=== PATIENT | male | born 1965 | race Hispanic/Latino ===

== ENCOUNTER 2022-11-25 19:56 | Inpatient (IN) | payer MEDICAID, OTHER ==
[~2022-11-25] VITALS: Ht 154.9 cm; Wt 103.8 kg
[~2022-11-25 19:56] MED LIST: ALBU90AE2 IH; DAPA10TA PO; LISI5TAB21 PO; METO25TA6 PO; SPIR25TA PO; TERB250T89 PO; TRAM50TA4 PO
[2022-11-26] MEDS ORDERED: IPRATROPIUM/ALBUTEROL SULFATE 3 ML SOLUTION IH ONE
[2022-11-26] MEDS ORDERED: ENOXAPARIN SODIUM 120 MG/0.8ML SQ ONE
[2022-11-26] MEDS ORDERED: ASPIRIN 325MG TAB PO ONE
[2022-11-26] MEDS ORDERED: NITROGLYCERIN 1GM OINT 1 INCH/1GM TD ONE
[2022-11-26] MEDS ORDERED: GUAIFENESIN 600 MG TABLET.ER PO ONE
[2022-11-26 00:03] LABS: APPEARANCE,URINE CLEAR (CLEAR); BILIRUBIN,URINE NEGATIVE (NEGATIVE); COLOR,URINE LIGHT-YELLOW (YELLOW); GLUCOSE, URINE (UA) NEGATIVE (NEGATIVE); KETONES,URINE NEGATIVE (NEGATIVE); LEUKOCYTE ESTERASE ,URINE NEGATIVE Leu/uL (NEGATIVE); NITRATE,URINE NEGATIVE (NEGATIVE); PH,URINE 5.5 (5.0-8.0); PROTEIN,URINE NEGATIVE (NEGATIVE); UROBILINOGEN,URINE 0.2 mg/dL (0.2-1.0)
[2022-11-26 00:06] LABS: ADD UA MICROSCOPIC YES
[2022-11-26 00:07] VITALS: PULSE 80; RESP 14
[2022-11-26 00:12] LABS: ABG BASE EXCESS -2.1 mmol/L (-2.0-3.0); ABG HCO3 21.5 mmol/L (21.0-28.0); ABG OXYGEN SATURATION 92.7 % (95.0-99.0); ABG PCO2 34 mmHg (35-48); ABG PH 7.422 (7.35-7.450); DEVICE COMMENT ROOM AIR; PO2, ARTERIAL BG 62.6 mmHg (83.0-108.0); VENT MODE, BG ROOM AIR (ROOM AIR)
[2022-11-26 00:21] LABS: MUCUS,URINE RARE LPF (None Seen)
[2022-11-26 00:36] LABS: CREATININE 1.3 mg/dL (0.5-1.5); POTASSIUM 4.1 mmol/L (3.5-5.1)
[2022-11-26 00:41] LABS: BASOPHILS # (AUTO) 0.03 K/uL (0.00-0.20); BASOPHILS % (AUTO) 0.3 % (0.0-5.0); EOSINOPHILS # (AUTO) 0.15 K/uL (0.00-0.70); EOSINOPHILS % (AUTO) 1.7 % (0.0-8.0); HEMATOCRIT 41.8 % (42-54); IMMATURE GRANULOCYTE ABSOLUTE 0.03 K/uL (0-1); LYMPHOCYTES % (AUTO) 11.4 % (21.0-51.0); MEAN CORPUSCULAR HEMOGLOBIN 32.3 pg (27.0-33.0); MEAN CORPUSCULAR HGB CONC 34.2 g/dL (32.0-36.0); MEAN CORPUSCULAR VOLUME 94.4 fL (79-99); MONOCYTES # (AUTO) 0.7 K/uL (0.1-1.0); MONOCYTES % (AUTO) 7.6 % (3.0-13.0); NEUTROPHILS # (AUTO) 6.9 K/uL (1.8-7.7); NEUTROPHILS % (AUTO) 78.7 % (40.0-77.0); PLATELET COUNT (AUTO) 232 K/uL (130-400); RED BLOOD CELL COUNT(AUTO) 4.43 MIL/uL (4.50-6.20); RED CELL DISTRIBUTION WIDTH 14.1 % (11.0-15.5); WHITE BLOOD COUNT (AUTO) 8.8 K/uL (4.8-10.8)
[2022-11-26 00:46] LABS: ALBUMIN 3.6 g/dL (3.5-5.0); BILIRUBIN,TOTAL 0.4 mg/dL (0.2-1.0); MAGNESIUM 1.9 mg/dL (1.80-2.40); TOTAL PROTEIN, SERUM 7.6 g/dL (6.0-8.3)
[2022-11-26 00:52] LABS: INFLUENZA TYPE A Negative For Type A (NEGATIVE); INFLUENZA TYPE B Negative For Type B (NEGATIVE)
[2022-11-26 00:58] LABS: SARS-CoV-2, RNA, NAAT POSITIVE SARS CoV-2 (NEGATIVE)
[2022-11-26] MEDS ORDERED: GUAIFENESIN-DM 200/20 MG 10 ML PO PRN (03:00)
[2022-11-26] MEDS ORDERED: NITROGLYCERIN 1GM OINT 1 INCH/1GM TD SCH (03:00)
[2022-11-26] MEDS: ALBUTEROL INHALER 90MCG/INH IH SCH ×4 (03:00→21:34)
[2022-11-26] MEDS ORDERED: ONDANSETRON 4MG INJ IV PRN (03:00)
[2022-11-26] MEDS ORDERED: ACETAMINOPHEN 325 MG TAB PO PRN ×2 (03:00)
[2022-11-26] MEDS ORDERED: MORPHINE 4 MG SYG IV PRN (03:00)
[2022-11-26] MEDS ORDERED: MORPHINE 2 MG SYG IV PRN (03:00)
[2022-11-26] MEDS: DOXYCYCLINE 100MG+NS 250ML 250 ML IV SCH ×2 (03:24→16:19)
[2022-11-26] MEDS: DEXAMETHASONE SOD PHOSPHATE 4 MG/ML 1ML VIAL IV SCH (03:24)
[2022-11-26] MEDS: CEFTRIAXONE 1G VIAL 1 GM in 0.9%NACL 50ML 50 ML IV SCH (03:25)
[2022-11-26] MEDS ORDERED: LACTATED RINGERS 1000ML 1,983 ML IV ONE (03:30)
[2022-11-26] MEDS: PHARMACY COMMUNICATION MISC SCH ×2 (03:30→15:30)
[2022-11-26] MEDS: FAMOTIDINE 20MG TAB PO SCH ×2 (08:23→21:31)
[2022-11-26] MEDS: ENOXAPARIN SODIUM 40 MG/0.4 ML SYRINGE SQ SCH (08:23)
[2022-11-26] MEDS: ASPIRIN 81MG CHEW TAB PO SCH (08:24)
[2022-11-26 08:30] LABS: HEMOGLOBIN A1C 6.1 % (4.0-6.0)
[2022-11-26] MEDS: DEXAMETHASONE 4 MG TAB PO SCH (09:06)
[2022-11-26] MEDS: INSULIN HUMULIN R 100 UNIT/ML 3ML SQ SCH ×3 (12:20→21:32)
[2022-11-26 18:43] VITALS: PULSE 66; RESP 14
[2022-11-26] MEDS: BUDESONIDE 0.25 MG/2 ML INH IH SCH (18:43)
[2022-11-26 18:44] VITALS: PULSE 66; RESP 14; O2SAT 98
[2022-11-27 00:20] VITALS: BP 126/82; PULSE 76; RESP 22
[2022-11-27] MEDS: PHARMACY COMMUNICATION MISC SCH ×2 (00:35→03:30)
[2022-11-27 00:54] VITALS: O2SAT 97
[2022-11-27] MEDS ORDERED: CEFTRIAXONE 1G VIAL ONE (02:47)
[2022-11-27] MEDS: DEXAMETHASONE SOD PHOSPHATE 4 MG/ML 1ML VIAL IV SCH (02:56)
[2022-11-27] MEDS: CEFTRIAXONE 1G VIAL 1 GM in 0.9%NACL 50ML 50 ML IV SCH (02:57)
[2022-11-27] MEDS: ALBUTEROL INHALER 90MCG/INH IH SCH ×2 (03:23→21:00)
[2022-11-27] MEDS: DOXYCYCLINE 100MG+NS 250ML 250 ML IV SCH (03:23)
[2022-11-27 07:01] VITALS: PULSE 63; RESP 18
[2022-11-27] MEDS: ENOXAPARIN SODIUM 40 MG/0.4 ML SYRINGE SQ SCH (09:00)
[2022-11-27] MEDS: DEXAMETHASONE 4 MG TAB PO SCH (09:00)
[2022-11-27] MEDS: ASPIRIN 81MG CHEW TAB PO SCH (09:00)
[2022-11-27] MEDS ORDERED: DOXYCYCLINE HYCLATE 100 MG TABLET PO ONE (15:13)
[2022-11-27 18:05] VITALS: PULSE 74; RESP 16
[2022-11-27 21:00] VITALS: O2SAT 97
[2022-11-27] MEDS: FAMOTIDINE 20MG TAB PO SCH (21:00)
[2022-11-27] MEDS: INSULIN HUMULIN R 100 UNIT/ML 3ML SQ SCH (21:00)
[2022-11-28] VITALS (11 sets, daily range): BP systolic 119–139; BP diastolic 65–89; PULSE 60–76; RESP 18–20; O2SAT 95–99
[2022-11-28 00:35] LABS: CREATININE 1.1 mg/dL (0.5-1.5); CRP QUANTITATIVE 11.9 mg/L (0.00-9.0); PHOSPHORUS 3.6 mg/dL (2.5-4.9); POTASSIUM 3.8 mmol/L (3.5-5.1)
[2022-11-28] MEDS: DOXYCYCLINE 100MG+NS 250ML 250 ML IV SCH (01:59)
[2022-11-28] MEDS ORDERED: CEFTRIAXONE 1G VIAL ONE (03:28)
[2022-11-28] MEDS: CEFTRIAXONE 1G VIAL 1 GM in 0.9%NACL 50ML 50 ML IV SCH (03:29)
[2022-11-28] MEDS: DOXYCYCLINE HYCLATE 100 MG TABLET PO SCH ×3 (03:30→20:36)
[2022-11-28] MEDS: ALBUTEROL INHALER 90MCG/INH IH SCH (03:32)
[2022-11-28] MEDS: INSULIN HUMULIN R 100 UNIT/ML 3ML SQ SCH ×4 (05:23→20:37)
[2022-11-28] MEDS: BUDESONIDE 0.25 MG/2 ML INH IH SCH ×2 (06:47→18:59)
[2022-11-28 06:55] LABS: BASOPHILS # (AUTO) 0.03 K/uL (0.00-0.20); BASOPHILS % (AUTO) 0.3 % (0.0-5.0); EOSINOPHILS # (AUTO) 0.01 K/uL (0.00-0.70); EOSINOPHILS % (AUTO) 0.1 % (0.0-8.0); HEMATOCRIT 40.9 % (42-54); IMMATURE GRANULOCYTE ABSOLUTE 0.03 K/uL (0-1); LYMPHOCYTES # (AUTO) 3.2 K/uL (1.0-4.8); LYMPHOCYTES % (AUTO) 32.6 % (21.0-51.0); MEAN CORPUSCULAR HEMOGLOBIN 31.4 pg (27.0-33.0); MEAN CORPUSCULAR HGB CONC 32.5 g/dL (32.0-36.0); MEAN CORPUSCULAR VOLUME 96.5 fL (79-99); MONOCYTES # (AUTO) 0.8 K/uL (0.1-1.0); MONOCYTES % (AUTO) 8.5 % (3.0-13.0); NEUTROPHILS # (AUTO) 5.7 K/uL (1.8-7.7); NEUTROPHILS % (AUTO) 58.2 % (40.0-77.0); PLATELET COUNT (AUTO) 201 K/uL (130-400); RED BLOOD CELL COUNT(AUTO) 4.24 MIL/uL (4.50-6.20); RED CELL DISTRIBUTION WIDTH 14.3 % (11.0-15.5); WHITE BLOOD COUNT (AUTO) 9.8 K/uL (4.8-10.8)
[2022-11-28 07:10] LABS: ALANINE AMINOTRANSFERASE 33 U/L (12-78); ALBUMIN 3.2 g/dL (3.5-5.0); ASPARTATE AMINOTRANSFERASE 24 U/L (10-37); BILIRUBIN,TOTAL 0.4 mg/dL (0.2-1.0); CARBON DIOXIDE 26 mmol/L (21-32); CHLORIDE 104 mmol/L (101-111); CREATININE 1.2 mg/dL (0.5-1.5); GLOMERULAR FILTR. RATE CALC 70 mL/min (>90); GLUCOSE,RANDOM 107 mg/dL (70-105); POTASSIUM 3.5 mmol/L (3.5-5.1); SODIUM SERUM 138 mmol/L (136-145); UREA NITROGEN, BLOOD 18 mg/dL (7-18)
[2022-11-28 07:49] LABS: CRP QUANTITATIVE < 2.00 mg/L (0.00-9.0)
[2022-11-28 08:06] LABS: ERYTHROCYTE SEDIMENTATION RATE 17 MM/HR (0-20)
[2022-11-28] MEDS: FAMOTIDINE 20MG TAB PO SCH ×2 (08:33→20:36)
[2022-11-28] MEDS: DEXAMETHASONE 4 MG TAB PO SCH (08:37)
[2022-11-28] MEDS: ASPIRIN 81MG CHEW TAB PO SCH (08:37)
[2022-11-28] MEDS: ENOXAPARIN SODIUM 40 MG/0.4 ML SYRINGE SQ SCH (08:38)
[2022-11-29] VITALS (11 sets, daily range): BP systolic 128–148; BP diastolic 81–91; PULSE 61–77; RESP 18–20; O2SAT 96–100
[2022-11-29] MEDS ORDERED: CEFTRIAXONE 1G VIAL ONE (02:28)
[2022-11-29] MEDS: CEFTRIAXONE 1G VIAL 1 GM in 0.9%NACL 50ML 50 ML IV SCH (02:29)
[2022-11-29 04:10] LABS: BASOPHILS # (AUTO) 0.02 K/uL (0.00-0.20); BASOPHILS % (AUTO) 0.2 % (0.0-5.0); HEMATOCRIT 39.5 % (42-54); IMMATURE GRANULOCYTE ABSOLUTE 0.06 K/uL (0-1); LYMPHOCYTES # (AUTO) 1.8 K/uL (1.0-4.8); LYMPHOCYTES % (AUTO) 15.3 % (21.0-51.0); MEAN CORPUSCULAR HEMOGLOBIN 31.8 pg (27.0-33.0); MEAN CORPUSCULAR HGB CONC 33.7 g/dL (32.0-36.0); MEAN CORPUSCULAR VOLUME 94.5 fL (79-99); MONOCYTES # (AUTO) 0.8 K/uL (0.1-1.0); MONOCYTES % (AUTO) 6.8 % (3.0-13.0); NEUTROPHILS # (AUTO) 8.8 K/uL (1.8-7.7); NEUTROPHILS % (AUTO) 77.2 % (40.0-77.0); PLATELET COUNT (AUTO) 218 K/uL (130-400); RED BLOOD CELL COUNT(AUTO) 4.18 MIL/uL (4.50-6.20); WHITE BLOOD COUNT (AUTO) 11.4 K/uL (4.8-10.8)
[2022-11-29 05:08] LABS: HEMATOCRIT 37.5 % (42-54); MEAN CORPUSCULAR HEMOGLOBIN 32.4 pg (27.0-33.0); MEAN CORPUSCULAR HGB CONC 34.1 g/dL (32.0-36.0); MEAN CORPUSCULAR VOLUME 94.9 fL (79-99); RED BLOOD CELL COUNT(AUTO) 3.95 MIL/uL (4.50-6.20); RED CELL DISTRIBUTION WIDTH 13.9 % (11.0-15.5); WHITE BLOOD COUNT (AUTO) 7.1 K/uL (4.8-10.8)
[2022-11-29 05:24] LABS: ALBUMIN 3.1 g/dL (3.5-5.0); BILIRUBIN,TOTAL 0.4 mg/dL (0.2-1.0); CREATININE 1.2 mg/dL (0.5-1.5); MAGNESIUM 2.1 mg/dL (1.80-2.40); POTASSIUM 3.7 mmol/L (3.5-5.1); TOTAL PROTEIN, SERUM 6.9 g/dL (6.0-8.3)
[2022-11-29] MEDS: INSULIN HUMULIN R 100 UNIT/ML 3ML SQ SCH ×4 (05:41→20:16)
[2022-11-29] MEDS: BUDESONIDE 0.25 MG/2 ML INH IH SCH (06:41)
[2022-11-29] MEDS: ASPIRIN 81MG CHEW TAB PO SCH (10:14)
[2022-11-29] MEDS: DEXAMETHASONE 4 MG TAB PO SCH (10:14)
[2022-11-29] MEDS: DOXYCYCLINE HYCLATE 100 MG TABLET PO SCH ×2 (10:15→21:26)
[2022-11-29] MEDS: FAMOTIDINE 20MG TAB PO SCH ×2 (10:15→21:26)
[2022-11-29] MEDS: ENOXAPARIN SODIUM 40 MG/0.4 ML SYRINGE SQ SCH (10:16)
[2022-11-29] MEDS: ALBUTEROL INHALER 90MCG/INH IH SCH ×2 (10:24→16:07)
[2022-11-30] VITALS: BP 141/88; PULSE 66; RESP 16
[2022-11-30] MEDS: BUDESONIDE 0.25 MG/2 ML INH IH SCH ×2 (02:29→06:34)
[2022-11-30] MEDS ORDERED: CEFTRIAXONE 1G VIAL IVPB SCH (03:00)
[2022-11-30 03:45] VITALS: BP 145/90; PULSE 71; RESP 18
[2022-11-30 04:02] LABS: HEMATOCRIT 40.1 % (42-54); MEAN CORPUSCULAR HEMOGLOBIN 31.8 pg (27.0-33.0); MEAN CORPUSCULAR HGB CONC 33.4 g/dL (32.0-36.0); MEAN CORPUSCULAR VOLUME 95.2 fL (79-99); NUCLEATED RED BLOOD CELLS 0.3 % (0.0-0.19); RED BLOOD CELL COUNT(AUTO) 4.21 MIL/uL (4.50-6.20); RED CELL DISTRIBUTION WIDTH 13.9 % (11.0-15.5); WHITE BLOOD COUNT (AUTO) 7.5 K/uL (4.8-10.8)
[2022-11-30 04:49] LABS: BILIRUBIN,TOTAL 0.4 mg/dL (0.2-1.0); CREATININE 1.1 mg/dL (0.5-1.5); MAGNESIUM 2.2 mg/dL (1.80-2.40); POTASSIUM 3.8 mmol/L (3.5-5.1); TOTAL PROTEIN, SERUM 6.9 g/dL (6.0-8.3)
[2022-11-30] MEDS: INSULIN HUMULIN R 100 UNIT/ML 3ML SQ SCH ×2 (06:19→11:30)
[2022-11-30 06:36] VITALS: PULSE 72; RESP 18; O2SAT 96
[2022-11-30 07:00] VITALS: BP 128/88; PULSE 63; RESP 20
[2022-11-30 08:00] VITALS: O2SAT 100
[2022-11-30] MEDS: FAMOTIDINE 20MG TAB PO SCH (09:00)
[2022-11-30] MEDS: DEXAMETHASONE 4 MG TAB PO SCH (09:00)
[2022-11-30] MEDS: DOXYCYCLINE HYCLATE 100 MG TABLET PO SCH (09:00)
[2022-11-30] MEDS: ENOXAPARIN SODIUM 40 MG/0.4 ML SYRINGE SQ SCH (09:00)
[2022-11-30] MEDS: ASPIRIN 81MG CHEW TAB PO SCH (09:02)
[2022-11-30 11:00] VITALS: BP 117/84; PULSE 67; RESP 18
== END 2022-11-30 12:30 | disposition home or self-care (01) | DRG 871 ==
LOC: EDH 19:56 → EDHIP 19:57 → 2AH 11-27 00:46
PROVIDERS: ADMIT Internal Medicine; ATTEND Internal Medicine
DX: A40.9 Streptococcal sepsis, unspecified (principal); J12.82 Pneumonia due to coronavirus disease 2019; J96.01 Acute respiratory failure with hypoxia; U07.1 COVID-19; J44.1 Chronic obstructive pulmonary disease with (acute) exacerbation; Z68.41 Body mass index [BMI] 40.0-44.9, adult; J44.0 Chronic obstructive pulmonary disease with (acute) lower respiratory infection; Z91.199 Patient's noncompliance with other medical treatment and regimen due to unspecified reason; E66.01 Morbid (severe) obesity due to excess calories; E11.9 Type 2 diabetes mellitus without complications; E78.2 Mixed hyperlipidemia; F02.80 Dementia in other diseases classified elsewhere, unspecified severity, without behavioral disturbance, psychotic disturbance, mood disturbance, and anxiety; G30.9 Alzheimer's disease, unspecified; I10 Essential (primary) hypertension; I25.119 Atherosclerotic heart disease of native coronary artery with unspecified angina pectoris; Z79.82 Long term (current) use of aspirin; Z82.49 Family history of ischemic heart disease and other diseases of the circulatory system; Z87.891 Personal history of nicotine dependence
CPT/HCPCS: 36415; 36600; 71045; 80048; 80053; 81001; 82550; 82803; 82948; 83036; 83605; 83735; 83874; 83880; 84100; 84145; 84484; 85025; 85027; 85378; 85651; 86140; 87040; 87077; 87186; 87635; 87804; 93005; 94640; 94664; C9803; G0378; J0696; J1100; J1650; J1815; J3490; J8540

== ENCOUNTER 2023-03-19 10:06 | Inpatient (IN) | payer OTHER ==
[~2023-03-19] VITALS: Ht 172.7 cm; Wt 112.5 kg
[2023-03-19 10:34] LABS: BASOPHILS # (AUTO) 0.04 K/uL (0.00-0.20); BASOPHILS % (AUTO) 0.7 % (0.0-5.0); EOSINOPHILS # (AUTO) 0.11 K/uL (0.00-0.70); EOSINOPHILS % (AUTO) 1.8 % (0.0-8.0); HEMATOCRIT 46.2 % (42-54); IMMATURE GRANULOCYTE ABSOLUTE 0.03 K/uL (0-1); LYMPHOCYTES # (AUTO) 2.7 K/uL (1.0-4.8); LYMPHOCYTES % (AUTO) 43.8 % (21.0-51.0); MEAN CORPUSCULAR HEMOGLOBIN 32.6 pg (27.0-33.0); MEAN CORPUSCULAR HGB CONC 34.4 g/dL (32.0-36.0); MEAN CORPUSCULAR VOLUME 94.9 fL (79-99); MONOCYTES # (AUTO) 0.4 K/uL (0.1-1.0); MONOCYTES % (AUTO) 5.8 % (3.0-13.0); NEUTROPHILS # (AUTO) 2.9 K/uL (1.8-7.7); NEUTROPHILS % (AUTO) 47.4 % (40.0-77.0); PLATELET COUNT (AUTO) 236 K/uL (130-400); RED BLOOD CELL COUNT(AUTO) 4.87 MIL/uL (4.50-6.20); RED CELL DISTRIBUTION WIDTH 13.5 % (11.0-15.5); WHITE BLOOD COUNT (AUTO) 6.1 K/uL (4.8-10.8)
[2023-03-19 10:52] LABS: SARS-CoV-2, RNA, NAAT NEGATIVE SARS CoV-2 (NEGATIVE)
[2023-03-19 11:14] LABS: INFLUENZA TYPE A Negative For Type A (NEGATIVE); INFLUENZA TYPE B Negative For Type B (NEGATIVE)
[2023-03-19 11:22] LABS: CREATININE 1.3 mg/dL (0.5-1.5)
[2023-03-19 11:33] LABS: ALBUMIN 3.4 g/dL (3.5-5.0); BILIRUBIN,TOTAL 0.6 mg/dL (0.2-1.0); TOTAL PROTEIN, SERUM 7.5 g/dL (6.0-8.3)
[2023-03-19] MEDS ORDERED: IOHEXOL 350 MG/ML 100ML INFUS..BTL IV ONE (12:55)
[2023-03-19 15:50] LABS: APPEARANCE,URINE CLEAR (CLEAR); BILIRUBIN,URINE NEGATIVE (NEGATIVE); COLOR,URINE LIGHT-YELLOW (YELLOW); GLUCOSE, URINE (UA) NEGATIVE (NEGATIVE); KETONES,URINE NEGATIVE (NEGATIVE); LEUKOCYTE ESTERASE ,URINE NEGATIVE Leu/uL (NEGATIVE); NITRATE,URINE NEGATIVE (NEGATIVE); OCCULT BLOOD,URINE NEGATIVE (NEGATIVE); PROTEIN,URINE NEGATIVE (NEGATIVE); UROBILINOGEN,URINE 0.2 mg/dL (0.2-1.0)
[2023-03-19 15:59] LABS: ADD UA MICROSCOPIC YES
[2023-03-19 16:00] LABS: MUCUS,URINE RARE LPF (None Seen); WBC,URINE 0-1 /HPF (0-1)
[2023-03-19] MEDS ORDERED: ACETAMINOPHEN 325 MG TAB PO PRN (18:30)
[2023-03-19] MEDS ORDERED: ONDANSETRON 4MG INJ IV PRN (18:30)
[2023-03-19] MEDS ORDERED: KCL 20 MEQ ERTAB PO PRN (18:30)
[2023-03-19] MEDS ORDERED: POTASSIUM CHLORIDE 10% ELIXIR 20 MEQ/15 ML UDCUP PO PRN (18:30)
[2023-03-19] MEDS ORDERED: ASPIRIN 81MG CHEW TAB PO ONE (18:30)
[2023-03-19] MEDS ORDERED: POTASSIUM CHLORIDE 20MEQ/100ML 100 ML IV PRN (18:30)
[2023-03-19] MEDS ORDERED: MAGNESIUM 2GM PREMIX 50ML 50 ML IV PRN (18:30)
[2023-03-19] MEDS: NITROGLYCERIN 1GM OINT 1 INCH/1GM TD SCH (18:39)
[2023-03-19 20:22] VITALS: BP 116/79; PULSE 68; RESP 13
[2023-03-19] MEDS: ACETAMINOPHEN 325 MG TAB PO PRN (20:53)
[2023-03-19] MEDS: KETOROLAC 30MG VIAL (30MG/ML) IVP PRN (22:21)
[2023-03-19 22:40] VITALS: O2SAT 98
[2023-03-19] MEDS ORDERED: metformin PO (22:58)
[2023-03-19] MEDS: IPRATROPIUM/ALBUTEROL SULFATE 3 ML SOLUTION IH SCH (23:23)
[2023-03-19 23:24] VITALS: PULSE 73; RESP 20
[2023-03-19 23:34] VITALS: BP 108/69; PULSE 61; RESP 12
[2023-03-20] VITALS (11 sets, daily range): BP systolic 100–130; BP diastolic 63–82; PULSE 60–88; RESP 17–20; O2SAT 95–96
[2023-03-20] MEDS: NITROGLYCERIN 1GM OINT 1 INCH/1GM TD SCH ×3 (03:02→18:58)
[2023-03-20 05:24] LABS: BASOPHILS # (AUTO) 0.05 K/uL (0.00-0.20); BASOPHILS % (AUTO) 0.7 % (0.0-5.0); EOSINOPHILS # (AUTO) 0.18 K/uL (0.00-0.70); EOSINOPHILS % (AUTO) 2.6 % (0.0-8.0); HEMATOCRIT 42.9 % (42-54); IMMATURE GRANULOCYTE ABSOLUTE 0.02 K/uL (0-1); LYMPHOCYTES # (AUTO) 2.9 K/uL (1.0-4.8); LYMPHOCYTES % (AUTO) 41.8 % (21.0-51.0); MEAN CORPUSCULAR HEMOGLOBIN 31.9 pg (27.0-33.0); MEAN CORPUSCULAR HGB CONC 33.1 g/dL (32.0-36.0); MEAN CORPUSCULAR VOLUME 96.4 fL (79-99); MONOCYTES # (AUTO) 0.6 K/uL (0.1-1.0); MONOCYTES % (AUTO) 8.3 % (3.0-13.0); NEUTROPHILS # (AUTO) 3.2 K/uL (1.8-7.7); NEUTROPHILS % (AUTO) 46.3 % (40.0-77.0); PLATELET COUNT (AUTO) 247 K/uL (130-400); RED BLOOD CELL COUNT(AUTO) 4.45 MIL/uL (4.50-6.20); RED CELL DISTRIBUTION WIDTH 13.9 % (11.0-15.5)
[2023-03-20 05:36] LABS: CREATININE 1.2 mg/dL (0.5-1.5); MAGNESIUM 2.1 mg/dL (1.80-2.40); PHOSPHORUS 4.1 mg/dL (2.5-4.9); POTASSIUM 4.2 mmol/L (3.5-5.1)
[2023-03-20] MEDS: BUDESONIDE 0.5 MG/2 ML INH IH SCH ×2 (06:32→18:17)
[2023-03-20] MEDS: IPRATROPIUM/ALBUTEROL SULFATE 3 ML SOLUTION IH SCH ×4 (06:32→23:46)
[2023-03-20] MEDS: FAMOTIDINE 20MG TAB PO SCH (09:24)
[2023-03-20] MEDS: ASPIRIN 81MG CHEW TAB PO SCH (09:24)
[2023-03-20] MEDS: ENOXAPARIN SODIUM 40 MG/0.4 ML SYRINGE SQ SCH (09:24)
[2023-03-20] MEDS ORDERED: ALBUTEROL SULFATE IH PRN (13:30)
[2023-03-20] MEDS: METOPROLOL TARTRATE 25 MG TAB PO SCH (20:00)
[2023-03-20 22:05] LABS: AMPHET/METH SCREEN,URINE NEGATIVE (NEGATIVE); BARBITURATE SCREEN, URINE NEGATIVE (NEGATIVE); BENZODIAZEPINES SCREEN,URINE NEGATIVE (NEGATIVE); CANNABINOID SCREEN,URINE NEGATIVE (NEGATIVE); COCAINE SCREEN,URINE NEGATIVE (NEGATIVE); OPIATE SCREEN,URINE NEGATIVE (NEGATIVE); PHENCYCLIDINE SCREEN,URINE NEGATIVE (NEGATIVE)
[2023-03-20] MEDS: ACETAMINOPHEN 325 MG TAB PO PRN (23:42)
[2023-03-21] VITALS (13 sets, daily range): BP systolic 93–125; BP diastolic 69–80; PULSE 64–75; RESP 17–21; O2SAT 93–94
[2023-03-21] MEDS: NITROGLYCERIN 1GM OINT 1 INCH/1GM TD SCH (02:21)
[2023-03-21 05:05] LABS: HEMATOCRIT 41.7 % (42-54); MEAN CORPUSCULAR HEMOGLOBIN 32.5 pg (27.0-33.0); MEAN CORPUSCULAR HGB CONC 33.1 g/dL (32.0-36.0); MEAN CORPUSCULAR VOLUME 98.1 fL (79-99); RED BLOOD CELL COUNT(AUTO) 4.25 MIL/uL (4.50-6.20); RED CELL DISTRIBUTION WIDTH 13.9 % (11.0-15.5); WHITE BLOOD COUNT (AUTO) 7.4 K/uL (4.8-10.8)
[2023-03-21 05:35] LABS: BILIRUBIN,TOTAL 0.8 mg/dL (0.2-1.0); CREATININE 1.3 mg/dL (0.5-1.5); POTASSIUM 3.9 mmol/L (3.5-5.1); TOTAL PROTEIN, SERUM 6.8 g/dL (6.0-8.3)
[2023-03-21] MEDS: ALBUTEROL 0.083% 2.5 MG/3 ML INH IH PRN ×2 (06:35→06:36)
[2023-03-21] MEDS: IPRATROPIUM/ALBUTEROL SULFATE 3 ML SOLUTION IH SCH ×4 (06:36→23:49)
[2023-03-21] MEDS: BUDESONIDE 0.5 MG/2 ML INH IH SCH ×2 (06:36→18:50)
[2023-03-21] MEDS ORDERED: LISINOPRIL 5 MG TABLET PO SCH (09:00)
[2023-03-21] MEDS: METOPROLOL TARTRATE 25 MG TAB PO SCH ×2 (09:22→21:16)
[2023-03-21] MEDS: ENOXAPARIN SODIUM 40 MG/0.4 ML SYRINGE SQ SCH (09:23)
[2023-03-21] MEDS: ASPIRIN 81MG CHEW TAB PO SCH (09:23)
[2023-03-21] MEDS: FAMOTIDINE 20MG TAB PO SCH (09:23)
[2023-03-21] MEDS: KETOROLAC 30MG VIAL (30MG/ML) IVP PRN (09:46)
[2023-03-21] MEDS: SPIRONOLACTONE 25 MG TAB PO SCH (10:00)
[2023-03-21] MEDS: ISOSORBIDE MONO 60MG SR TAB PO SCH (10:00)
[2023-03-21] MEDS ORDERED: EMPAGLIFLOZIN 10MG TABLET PO ONE (10:30)
[2023-03-21] MEDS: FUROSEMIDE 20MG VIAL IV SCH ×2 (17:40→21:20)
[2023-03-22 04:00] VITALS: BP 112/57; PULSE 61; RESP 20
[2023-03-22 04:48] LABS: HEMATOCRIT 42.6 % (42-54); MEAN CORPUSCULAR HEMOGLOBIN 31.5 pg (27.0-33.0); MEAN CORPUSCULAR HGB CONC 32.4 g/dL (32.0-36.0); MEAN CORPUSCULAR VOLUME 97.3 fL (79-99); RED BLOOD CELL COUNT(AUTO) 4.38 MIL/uL (4.50-6.20); WHITE BLOOD COUNT (AUTO) 7.8 K/uL (4.8-10.8)
[2023-03-22 05:05] LABS: ALBUMIN 3.4 g/dL (3.5-5.0); BILIRUBIN,TOTAL 0.8 mg/dL (0.2-1.0); CREATININE 1.4 mg/dL (0.5-1.5); MAGNESIUM 2.3 mg/dL (1.80-2.40); POTASSIUM 3.8 mmol/L (3.5-5.1); TOTAL PROTEIN, SERUM 7.5 g/dL (6.0-8.3)
[2023-03-22] MEDS: IPRATROPIUM/ALBUTEROL SULFATE 3 ML SOLUTION IH SCH (06:19)
[2023-03-22] MEDS: BUDESONIDE 0.5 MG/2 ML INH IH SCH (06:19)
[2023-03-22 06:20] VITALS: PULSE 63; RESP 18
[2023-03-22 06:22] VITALS: O2SAT 96
[2023-03-22 06:23] VITALS: PULSE 63; RESP 18; O2SAT 97
[2023-03-22 08:00] VITALS: BP 133/79; PULSE 66; RESP 17
[2023-03-22] MEDS ORDERED: ASPI-1005 PO (08:22)
[2023-03-22] MEDS ORDERED: NITR0.4T50 SL (08:22)
[2023-03-22] MEDS ORDERED: SACU1TAB PO (08:22)
[2023-03-22] MEDS ORDERED: ISOS60TA77 PO (08:24)
[2023-03-22] MEDS ORDERED: ATOR40TA71 PO (08:27)
[2023-03-22] MEDS ORDERED: DAPA10TA PO (08:27)
[2023-03-22] MEDS: ENOXAPARIN SODIUM 40 MG/0.4 ML SYRINGE SQ SCH (09:00)
[2023-03-22] MEDS ORDERED: SACUBITRIL/VALSARTAN 1 EACH TABLET PO SCH (09:00)
[2023-03-22] MEDS: ASPIRIN 81MG CHEW TAB PO SCH (09:30)
[2023-03-22] MEDS: ISOSORBIDE MONO 60MG SR TAB PO SCH (09:30)
[2023-03-22] MEDS: SPIRONOLACTONE 25 MG TAB PO SCH (09:31)
[2023-03-22] MEDS: FAMOTIDINE 20MG TAB PO SCH (09:32)
[2023-03-22] MEDS: METOPROLOL TARTRATE 25 MG TAB PO SCH (09:33)
[2023-03-22] MEDS: FUROSEMIDE 20MG VIAL IV SCH (09:34)
[2023-03-22] MEDS ORDERED: ALBU90AE2 IH (10:20)
[2023-03-22] MEDS ORDERED: FURO20TA4 PO (10:20)
[2023-03-22] MEDS ORDERED: SPIR25TA6 PO (10:20)
[2023-03-22] MEDS ORDERED: ASPI-1443 PO (10:20)
[2023-03-22 12:00] VITALS: BP 134/78; PULSE 64; RESP 18
[2023-03-22] MEDS: ACETAMINOPHEN 325 MG TAB PO PRN (12:14)
== END 2023-03-22 14:15 | disposition home or self-care (01) | DRG 313 ==
LOC: EDH 10:06 → EDHIP 18:16 → 4AH 03-20 02:54
PROVIDERS: ADMIT Internal Medicine; ATTEND Internal Medicine
DX: R07.89 Other chest pain (principal); I50.32 Chronic diastolic (congestive) heart failure; E66.01 Morbid (severe) obesity due to excess calories; Z68.37 Body mass index [BMI] 37.0-37.9, adult; Z20.822 Contact with and (suspected) exposure to COVID-19; E78.2 Mixed hyperlipidemia; I11.0 Hypertensive heart disease with heart failure; I25.10 Atherosclerotic heart disease of native coronary artery without angina pectoris; J44.9 Chronic obstructive pulmonary disease, unspecified; Z79.51 Long term (current) use of inhaled steroids; Z79.82 Long term (current) use of aspirin; Z79.899 Other long term (current) drug therapy; Z85.828 Personal history of other malignant neoplasm of skin; Z86.73 Personal history of transient ischemic attack (TIA), and cerebral infarction without residual deficits; Z87.891 Personal history of nicotine dependence; Z91.148 Patient's other noncompliance with medication regimen for other reason
CPT/HCPCS: 36415; 71045; 71270; 80048; 80053; 80305; 81001; 83036; 83735; 83880; 84100; 84484; 85025; 85027; 85378; 87635; 87804; 93005; 93306; 93356; 94640; 94664; C9803; G0378; J1650; J1885; J1940; Q9967

== ENCOUNTER 2023-12-11 11:45 | Observation (INO) | payer SELFPAY ==
[~2023-12-11] VITALS: Ht 172.7 cm; Wt 110.1 kg
[~2023-12-11 11:45] MED LIST changes: -ALBU90AE2 IH; +ALBU90AE3 IH; +ASPI-1005 PO; +ATOR40TA71 PO; -LISI5TAB21 PO; +LOSA-417 PO; -METO25TA6 PO; +NITR0.4T50 SL; +RANO500T2 PO; -SPIR25TA PO; -TERB250T89 PO; -TRAM50TA4 PO
[2023-12-11 12:22] LABS: BASOPHILS # (AUTO) 0.06 K/uL (0.00-0.20); BASOPHILS % (AUTO) 0.9 % (0.0-5.0); EOSINOPHILS # (AUTO) 0.16 K/uL (0.00-0.70); EOSINOPHILS % (AUTO) 2.5 % (0.0-8.0); HEMATOCRIT 42.6 % (42-54); IMMATURE GRANULOCYTE ABSOLUTE 0.02 K/uL (0-1); LYMPHOCYTES # (AUTO) 2.4 K/uL (1.0-4.8); LYMPHOCYTES % (AUTO) 37.8 % (21.0-51.0); MEAN CORPUSCULAR HEMOGLOBIN 32.3 pg (27.0-33.0); MEAN CORPUSCULAR VOLUME 94.9 fL (79-99); MONOCYTES # (AUTO) 0.4 K/uL (0.1-1.0); MONOCYTES % (AUTO) 6.3 % (3.0-13.0); NEUTROPHILS # (AUTO) 3.3 K/uL (1.8-7.7); NEUTROPHILS % (AUTO) 52.2 % (40.0-77.0); PLATELET COUNT (AUTO) 220 K/uL (130-400); RED BLOOD CELL COUNT(AUTO) 4.49 MIL/uL (4.50-6.20); RED CELL DISTRIBUTION WIDTH 13.6 % (11.0-15.5); WHITE BLOOD COUNT (AUTO) 6.4 K/uL (4.8-10.8)
[2023-12-11 12:42] LABS: CREATININE 1.3 mg/dL (0.5-1.3); POTASSIUM 3.8 mmol/L (3.5-5.1)
[2023-12-11] MEDS: atorVAStatin 40 MG TABLET PO ONE (12:51)
[2023-12-11] MEDS: ASPIRIN 325MG TAB PO ONE (12:51)
[2023-12-11] MEDS: NITROGLYCERIN 0.4 MG SL TAB SL PRN (12:52)
[2023-12-11 12:54] LABS: B-TYPE NATRIURETIC PEPTIDE 12 pg/mL (0-100)
[2023-12-11 14:56] LABS: ADD UA MICROSCOPIC YES; APPEARANCE,URINE CLEAR (CLEAR); BILIRUBIN,URINE NEGATIVE (NEGATIVE); COLOR,URINE LIGHT-YELLOW (YELLOW); GLUCOSE, URINE (UA) NEGATIVE (NEGATIVE); KETONES,URINE NEGATIVE (NEGATIVE); LEUKOCYTE ESTERASE ,URINE NEGATIVE Leu/uL (NEGATIVE); MUCUS,URINE RARE LPF (None Seen); NITRATE,URINE NEGATIVE (NEGATIVE); OCCULT BLOOD,URINE NEGATIVE (NEGATIVE); PH,URINE 7.5 (5.0-8.0); PROTEIN,URINE NEGATIVE (NEGATIVE); UROBILINOGEN,URINE 0.2 mg/dL (0.2-1.0)
[2023-12-11] MEDS ORDERED: acetaMINOPHEN 325 MG TAB PO PRN ×2 (16:00)
[2023-12-11] MEDS ORDERED: ONDANSETRON 4MG INJ IV PRN (16:00)
[2023-12-11] MEDS ORDERED: NITROGLYCERIN 0.4 MG SL TAB SL PRN (16:30)
[2023-12-11] MEDS: metoPROLOL tartRATE 25 MG TAB PO SCH (21:26)
[2023-12-11] MEDS: RANOLAZINE 500 MG TAB.SR.12H PO SCH (21:26)
[2023-12-11] MEDS: FAMOTIDINE 20MG VIAL IV SCH (21:26)
[2023-12-11 21:35] VITALS: BP 135/86; PULSE 62; RESP 16; TEMP 98.1; O2SAT 100
[2023-12-12] VITALS: BP 127/78; PULSE 56; RESP 16; TEMP 98.1
[2023-12-12 04:00] VITALS: BP 126/62; PULSE 68; RESP 16; TEMP 98.1
[2023-12-12 05:29] LABS: CHOLESTEROL 99 mg/dL (<200); HDL CHOLESTEROL 43 mg/dL (29-71); LDL DIRECT 54 mg/dL (0-99); TRIGLYCERIDES 114 mg/dL (30-200)
[2023-12-12 07:56] VITALS: BP 129/89; PULSE 60; RESP 16; TEMP 98.3
[2023-12-12] MEDS: ENOXAPARIN SODIUM 30 MG/0.3 ML SQ SCH (09:47)
[2023-12-12] MEDS: LoSARTan 25 MG TABLET PO SCH (09:47)
[2023-12-12 11:41] VITALS: BP 133/79; PULSE 60; RESP 18; TEMP 98.5
[2023-12-12] MEDS ORDERED: ALBU90AE3 IH (15:36)
[2023-12-12] MEDS ORDERED: atorVAStatin 40 MG TABLET PO SCH (21:00)
== END 2023-12-12 17:40 | disposition home or self-care (01) ==
LOC: EDH 11:45 → EDHIP 11:46 → UNDOADMOB 15:43 → EDHIP 15:43 → 3BH 21:06 → EDHIP 21:06
PROVIDERS: ADMIT Hospitalist; ATTEND Hospitalist
DX: R07.89 Other chest pain (principal); I10 Essential (primary) hypertension; E66.01 Morbid (severe) obesity due to excess calories; J44.9 Chronic obstructive pulmonary disease, unspecified; E11.9 Type 2 diabetes mellitus without complications; I25.110 Atherosclerotic heart disease of native coronary artery with unstable angina pectoris; E78.5 Hyperlipidemia, unspecified; Z91.199 Patient's noncompliance with other medical treatment and regimen due to unspecified reason; Z88.5 Allergy status to narcotic agent; Z79.899 Other long term (current) drug therapy; Z68.36 Body mass index [BMI] 36.0-36.9, adult
CPT/HCPCS: 96374; 99285; 82550; 84484 ×2; 80048; 83880; 85025; 81001; 36415 ×2; 71045; 93005 ×2; 96376; 96372; 83036; 80061; 97161; 97116; G0378 ×25; J3490 ×2; J1650; G8980-CH; G8983-CH